=== PATIENT | male | born 1965 | race Two or more races ===

== ENCOUNTER → 2016-09-14 | Outpatient (CLI) | payer OTHER ==
--- NOTE | 2016-09-14 20:25 | HKNOTE ---
DATE OF SERVICE: 09/14/2016 MAIN COMPLAINT: Pain in the right knee. REFERRING PHYSICIAN: Dr. Elissa Boogie, [facility], [address] [place] [address]. HISTORY OF MAIN COMPLAINT: [facility]. The fall was due to s davonden acute pain in his lower back. However, he landed on his left knee. He was not able to get up and walk. He was pretty much carried back to his car. He subsequently saw a doctor. An MRI scan of the lumbar spine was ordered, and he was told that he had "lumbar disks." This was then treated with physical therapy, exercise and acupuncture. PRESENT COMPLAINTS: Pain ____ in the right knee, localized medially and posteriorly. He has had th e pain over 2 months, but he said today is a good day. He is not taking any pain medications. The pain is described as being moderate. The pain is aggravated by weightbearing, walking ____. The pain is described as being moderate. Pa in is mostly in the medial side of the knee and is aggravated by walking, weightbearing and stair cl imbing and any attempt at running. He does get rest pain and night pain. The patient has had treatment for his lumbar spine including physical therapy and acupuncture. He d oes not have any numbness in his leg except that he occasionally gets pain in the lower leg on the l eft-hand side. He does not ____ legs or feet. On a level surface, he can walk 3 or 4 blocks at a t [place] before the pain starts. He occasionally uses a cane. The knee pops, it feels unstable. He is not sure if it swells. He ____ multiple episodes of locking of the knee. He limps part of the time. He has difficulty clipping his toenails, but he can tie his shoelaces. SPORTING ACTIVITIES: None at present. PAST ORTHOPEDIC HISTORY: "Not applicable." ____ No previous orthopedic operations. CORTISONE INTAKE: None. ALCOHOL INTAKE: None. OTHER JOINT PROBLEMS: None. BLOOD TESTS FOR ARTHRITIS: None. PRIOR INJURIES TO HIPS OR KNEES: None. WORK STATUS: The patient is a software performance engineer. He has had a very colorful past, living in [facility] as well as [facility]. PAST MEDICAL HISTORY: "Heart problems." Blood "prenure" (I don't know what that means?). PAST SURGICAL HISTORY: No previous surgical operations. ALLERGIES: NONE. MEDICATIONS: 1. Losartan 50 mg once a day by mouth. 2. Metoprolol 25 mg once a day by mouth. 3. Simvastatin 10 mg once a day by mouth. 4. Aspirin 81 mg once a day by mouth. FAMILY HISTORY: Noncontributory. SYSTEMS REVIEW: The patient has skipping heartbeats, excessive urination, hypertension, leakage of urine, otherwise negative. HABITS: The patient does not smoke or drink alcoholic beverages. CAUSTIC PURIFICATION OPERATOR: Dr. Elissa Boogie, [facility]. PHYSICAL EXAMINATION: GENERAL: The patient is an extremely fit-looking and youthful 51-year-old male. His gait is normal . He walks without a walking aid. VITAL SIGNS: Height 5 feet 6 inches. Weight 175 pounds. Blood pressure 115/55, temperature 97.9. HIPS: Both hips have a full range of motion without pain. RIGHT KNEE: The right knee shows normal alignment. Active and passive extension lacks 5 degrees. Ac tive and passive flexion lacks 15 degrees (marked pain on attempting to force further flexion or ext ension). The medial and lateral collateral ligaments and cruciate ligaments are intact. Claudia test is negative. There is 2+ effusion. There is 6+ crepitus in the knee, none in the patella. There is no tenderness, scarring or cysts. The patella tracks normally. There is no tenderness on the articu lar surface of the patella or in the patellar groove. The Q angle is normal. LEFT KNEE: The left knee shows normal alignment. Active and passive extension is 0 degrees. Active and passive flexion is 135 degrees. The medial and lateral collateral ligaments and cruciate ligamen ts are intact. Claudia test is negative. There is no effusion, tenderness, scarring, crepitus, or cy sts. The patella tracks normally. There is no tenderness on the articular surface of the patella or in the patellar groove. The Q angle is normal. IMAGING: Plain x-rays of the right knee obtained today the [facility] were revie wed. These show moderate narrowing of the medial joint space and patellofemoral joint of the right knee. An MRI scan of the right knee obtained on 08/16/[address] Alex Molina as showing "U nstable oblique radial tear of the posterior horn root attachment of the medial meniscus. Discoid l ateral meniscus without a tear." DIAGNOSES: 1. Torn medial meniscus of the right knee. 2. 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 3. Hypertension. 4. Hypercholesterolemia. MANAGEMENT: The patient is advised that he will need to have an arthroscopic operation on the right knee. The surgery and some of the major possible complications were discussed with him in a fair a mount of detail. Postoperative course was discussed with him. He seemed to be somewhat opposed to the idea of surgery and said he would call us back if and when he wishes to consider proceeding with surgery. Dictated By: FARNAZ GRISSOM/JESSICA Conf#: [id number] DID#: [id number]
== END | disposition home or self-care (01) ==
LOC: HKI 13:58
DX: S83.241A Other tear of medial meniscus, current injury, right knee, initial encounter (principal); M25.361 Other instability, right knee; R26.89 Other abnormalities of gait and mobility; W18.30XA Fall on same level, unspecified, initial encounter; Y92.22 Religious institution as the place of occurrence of the external cause; I10 Essential (primary) hypertension; E78.00 Pure hypercholesterolemia, unspecified; Z79.82 Long term (current) use of aspirin
CPT/HCPCS: G0463